=== PATIENT | female | born 1960 | race Caucasian/White ===

== ENCOUNTER 2017-10-12 12:35 | Emergency (ER) | payer MEDICARE, MEDICAID ==
--- NOTE | 2017-10-12 13:16 | Emergency Department Record ---
History of Present Illness - General Chief Complaint: Ankle/Foot Injury Stated Complaint: LT FOOT POSSIBLE NEEDLE BROKEN OFF IN FOOT Time Seen by Provider: 10/12/17 12:53 Source: Patient Mode of Arrival: Ambulatory Limitations: No limitations - History of Present Illness Initial Comments: pt thinks she has half a needle in her foot. she states that she found half of it in her shoe and it has contd to hurt. Complaint: Foot injury Onset/Timin -: Days(s) Injury: Foot: Left Type of Injury: Puncture wound Severity scale (1-10): 4 Improves With: Nothing Worsens With: Nothing Context: Other Associated Symptoms: Able to partially bear weight Treatments Prior to Arrival: Bandage - Related Data Previous Rx's Medication Instructions Recorded Cephalexin [Keflex] 500 mg PO TID #30 cap 10/12/17 Allergies Allergy/AdvReac Type Severity Reaction Status Date / Time No Known Drug Allergies Allergy Verified 10/12/17 12:39 Travel Screening - Travel/Exposure Within Last 30 Days Have you traveled within the last 30 days?: No - Travel/Exposure Within Last Year Have you traveled outside the [place] in the last year?: No - Additonal Travel Details Have you been exposed to anyone with a communicable illness?: No - Travel Symptoms Symptom Screening: None Review of Systems Reviewed: No additional complaints except as noted below Constitutional: Reports: As per HPI. Denies: Chills, Fever, Malaise, Night sweats, Weakness, Weight change Eyes: Reports: As per HPI. Denies: Eye discharge, Eye pain, Photophobia, Vision change ENT: Reports: As per HPI. Denies: Congestion, Dental pain, Ear pain, Epistaxis , Hearing loss, Throat pain Respiratory: Reports: As per HPI. Denies: Cough, Dyspnea, Hemoptysis, Stridor, Wheezes Cardiovascular: Reports: As per HPI. Denies: Arrhythmia, Chest pain, Dyspnea on exertion, Edema, Murmurs, Orthopnea, Palpitations, Paroxysmal nocturnal dyspnea, Rheumatic Fever, Syncope Endocrine: Reports: As per HPI. Denies: Fatigue, Heat or cold intolerance, Polydipsia, Polyuria Gastrointestinal: Reports: As per HPI. Denies: Abdominal pain, Constipation, Diarrhea, Hematemesis, Hematochezia, Melena, Nausea, Vomiting Genitourinary: Reports: As per HPI. Denies: Abnormal menses, Discharge, Dyspareunia, Dysuria, Frequency, Hematuria, Incontinence, Retention, Urgency Musculoskeletal: Reports: As per HPI. Denies: Arthralgia, Back pain, Gout, Joint swelling, Myalgia, Neck pain Skin: Reports: As per HPI. Denies: Bruising, Change in color, Change in hair/ nails, Lesions, Pruritus, Rash Neurological: Reports: As per HPI. Denies: Abnormal gait, Confusion, Headache, Numbness, Paresthesias, Seizure, Tingling, Tremors, Vertigo, Weakness Psychiatric: Reports: As per HPI. Denies: Anxiety, Auditory hallucinations, Depression, Homicidal thoughts, Suicidal thoughts, Visual hallucinations Hematological/Lymphatic: Reports: As per HPI. Denies: Anemia, Blood Clots, Easy bleeding, Easy bruising, Swollen glands Past Medical History - SOCIAL HISTORY Smoking Status: Never smoker Alcohol Use: None Drug Use: None - RESPIRATORY Hx Respiratory Disorders: Yes Hx Pulmonary Embolism: Yes (several in [facility] 07/2014) - CARDIOVASCULAR Hx Cardio Disorders: Yes Hx Vascular Disease: Yes (venous insuff sees wound clinic) - NEURO Hx Neuro Disorders: No - GI Hx GI Disorders: No - Hx Genitourinary Disorders: No - ENDOCRINE Hx Endocrine Disorders: No Comment:: mom denies this but put her on metformin for blood clots - MUSCULOSKELETAL Hx Musculoskeletal Disorders: No - PSYCH Hx Psych Problems: No Hx Behavior Problems: Yes (anger issues) Comment:: 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 Physical Exam - General General Appearance: Alert, Oriented x3, Cooperative, Mild distress - Head Head exam: Normal inspection - Eye Eye exam: Normal appearance, PERRL, EOMI Pupils: Normal accommodation - ENT ENT exam: Normal exam, Mucous membranes moist, Normal external ear exam, Normal orophraynx Ear exam: Normal external inspection. negative: External canal tenderness Nasal Exam: Normal inspection. negative: Discharge, Sinus tenderness Mouth exam: Normal external inspection, Tongue normal Teeth exam: Normal inspection. negative: Dental caries Throat exam: Normal inspection. negative: Tonsillar erythema, Tonsillar exudate - Neck Neck exam: Normal inspection, Full ROM. negative: Tenderness - Respiratory Respiratory exam: Normal lung sounds bilaterally. negative: Respiratory distress - Cardiovascular Cardiovascular Exam: Regular rate, Normal rhythm, Normal heart sounds - GI/Abdominal GI/Abdominal exam: Soft, Normal bowel sounds. negative: Tenderness - Rectal Rectal exam: Deferred - exam: Deferred - Extremities Extremities exam: Normal inspection, Full ROM, Normal capillary refill, Tenderness, Other (swelling and a blister over the medial arch) Image of Feet: 1 - tender swelling w erythema and a blister - Back Back exam: Reports: Normal inspection, Full ROM. Denies: Muscle spasm, Rash noted, Tenderness - Neurological Neurological exam: Alert, Normal gait, Oriented X3, Reflexes normal - Psychiatric Psychiatric exam: Normal affect, Normal mood - Skin Skin exam: Dry, Intact, Normal color, Warm Course Vital Signs 10/12/17 12:41 Temperature 97.8 F Pulse Rate 77 Respiratory 16 Rate Blood Pressure 122/76 Pulse Ox 96 Medical Decision Making - Lab Data Result diagrams: 10/12/17 13:16 10/12/17 13:16 Disposition Disposition: Discharge Clinical Impression: Cellulitis and abscess of foot Disposition: Home, Self-Care Condition: (1) Good Instructions: Cellulitis (ED) Additional Instructions: follow up with family doctor this week. return sooner if worse. keep foot elevated and clean. Prescriptions: Cephalexin [Keflex] 500 mg PO TID #30 cap Forms: Patient Portal Access Quality - Quality Measures Quality Measures: N/A - Blood Pressure Screening Does Patient Have Any of the Following: No Blood Pressure Classification: Pre-Hypertensive BP Reading Systolic Measurement: 122 Diastolic Measurement: 76 Screening for High Blood Pressure: < Pre-Hypertensive BP, F/U Documented > [ G8950] Pre-Hypertensive Follow-up Interventions: Follow-up with rescreen every year.
[2017-10-12 13:21] LABS: EOS % 6.1 % (0-6); GRAN % 49.3 % (47-80); HEMATOCRIT 38.1 % (35.0-47.0); HEMOGLOBIN 11.8 gm/dl (11.6-16.0); LYMPH % 36.5 % (16-45); MEAN CELL VOLUME 91.8 fl (81-97); MEAN CORPUSCULAR HEMOGLOBIN 28.4 pg (27-33); MEAN PLATELET VOLUME 9.3 fl (7.4-10.4); MONO % 7.1 % (0-9); PLATELET COUNT 237 K/uL (130-400); RED BLOOD COUNT 4.15 M/uL (3.80-5.40); RED CELL DISTRIBUTION WIDTH 14.8 % (11.5-14.5); WHITE BLOOD COUNT W/O DIFF 3.9 K/uL (4.2-12.2)
[2017-10-12 13:35] LABS: BLOOD UREA NITROGEN 29 mg/dL (6-20); CREATININE 0.7 mg/dL (0.5-0.9); EST GLOMERULAR FILTRATION RATE > 60 mL/min
[2017-10-12 13:38] LABS: GLUCOSE,RANDOM 96 mg/dL (74-109)
[2017-10-12] MEDS ORDERED: CEPHALEXIN 500 MG CAPSULE PO STA (14:48)
--- NOTE | 2017-10-13 09:31 | RADIOLOGY REPORT ---
EXAM: LEFT FOOT HISTORY: PATIENT STEPPED ON NEEDLE TWO TO FOUR DAYS AGO. TECHNIQUE: Three views of the left foot were obtained. Comparison: None. FINDINGS: No radiopaque foreign body. No fracture or acute osseous abnormality. There is a plantar calcaneal spur. There is loss of the normal plantar arch. Arthritic changes are present at the talocalcaneal joint and talonavicular joint. Arthritic changes are also noted at the calcaneal cuboid and naviculocuneiform joints. The metacarpals and phalangeals appear diffusely demineralized, but are otherwise unremarkable. IMPRESSION: 1. NO ACUTE FRACTURE OR RADIOPAQUE FOREIGN BODY. 2. DIFFUSE ARTHRITIC CHANGES ARE PRESENT IN THE TARSAL BONES ABOVE. THERE IS SOME RESULTANT FLATTENING OF THE LEFT FOOT AND LOSS OF THE NORMAL ARCH. JOB NUMBER: [id number] [facility] [place]
== END 2017-10-12 14:59 | disposition home or self-care (01) ==
LOC: ER 12:35
DX: S91.332A Puncture wound without foreign body, left foot, initial encounter (principal); L03.116 Cellulitis of left lower limb; W26.8XXA Contact with other sharp object(s), not elsewhere classified, initial encounter
CPT/HCPCS: 80048; 85025; 99283

== ENCOUNTER 2018-09-04 15:04 | Emergency (ER) | payer MEDICARE, MEDICAID ==
--- NOTE | 2018-09-04 15:29 | Emergency Department Record ---
History of Present Illness - General Chief Complaint: Back Pain/Injury Stated Complaint: BACK AND LEG PAIN Time Seen by Provider: 09/04/18 15:22 Source: Patient Mode of Arrival: Ambulatory Limitations: No limitations - History of Present Illness Initial Comments: 58 yo female presents with low back with some pain radiating down the leg. 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 The pain is in lumbar area. The pain radiates to the right upper thigh. No weakness, no numbness, changes in bowel or bladder function. No abdominal pain. No pain beyond the knee. She saw her PCP yesterday. No imaging was completed at that time. MD Complaint: Back pain, Back injury Onset/Timin -: Days(s) Place: Home Radiation: Right leg Severity: Moderate Severity scale (1-10): 9 Quality: Aching Consistency: Constant Improves With: None Worsens With: Walking Associated Symptoms: Difficulty walking - Related Data Home Medications Medication Instructions Recorded Confirmed Last Taken Apixaban [Eliquis] 5 mg PO BID 09/04/18 09/04/18 09/04/18 Metformin HCl 500 mg PO BID 09/04/18 09/04/18 09/04/18 Montelukast Sodium [Singulair] 10 mg PO DAILY 09/04/18 09/04/18 09/04/18 Naproxen 500 mg PO BID 09/04/18 09/04/18 09/04/18 Previous Rx's Medication Instructions Recorded Hydrocodone/APAP 5/325Mg [[place] 1 each PO Q6H #12 tab 09/04/18 5Mg/325Mg] Allergies Allergy/AdvReac Type Severity Reaction Status Date / Time No Known Drug Allergies Allergy Verified 09/04/18 15:21 Travel Screening - Travel/Exposure Within Last 30 Days Have you traveled within the last 30 days?: No - Travel/Exposure Within Last Year Have you traveled outside the [place] in the last year?: No - Additonal Travel Details Have you been exposed to anyone with a communicable illness?: No - Travel Symptoms Symptom Screening: None Review of Systems Constitutional: Denies: Chills, Fever, Malaise, Weakness Eyes: Denies: Eye discharge ENT: Denies: Congestion, Throat pain Respiratory: Denies: Cough Cardiovascular: Denies: Chest pain, Syncope Endocrine: Denies: Fatigue Gastrointestinal: Denies: Abdominal pain, Diarrhea, Nausea, Vomiting Genitourinary: Denies: Dysuria, Urgency Musculoskeletal: Reports: Back pain, Myalgia. Denies: Arthralgia Skin: Denies: Bruising, Change in color, Rash Neurological: Denies: Headache Psychiatric: Denies: Anxiety Hematological/Lymphatic: Reports: Blood Clots. Denies: Easy bleeding, Easy bruising Past Medical History - SOCIAL HISTORY Smoking Status: Never smoker Alcohol Use: None Drug Use: None - RESPIRATORY Hx Respiratory Disorders: Yes Hx Pulmonary Embolism: Yes (several in [facility] 07/2014) - CARDIOVASCULAR Hx Cardio Disorders: Yes Hx Vascular Disease: Yes (venous insuff sees wound clinic) - NEURO Hx Neuro Disorders: No - GI Hx GI Disorders: No - Hx Genitourinary Disorders: No - ENDOCRINE Hx Endocrine Disorders: No Comment:: mom denies this but put her on metformin for blood clots - MUSCULOSKELETAL Hx Musculoskeletal Disorders: No - PSYCH Hx Psych Problems: No Hx Behavior Problems: Yes (anger issues) Comment:: 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 Physical Exam - General General Appearance: Alert, Oriented x3, Cooperative, No acute distress Limitations: No limitations - Head Head exam: Atraumatic, Normal inspection - Eye Eye exam: Normal appearance. negative: Conjunctival injection, Scleral icterus - ENT ENT exam: Normal exam Ear exam: Normal external inspection Nasal Exam: Normal inspection Mouth exam: Normal external inspection - Neck Neck exam: Normal inspection, Full ROM - Respiratory Respiratory exam: Normal lung sounds bilaterally. negative: Respiratory distress - Cardiovascular Cardiovascular Exam: Regular rate, Normal rhythm, Normal heart sounds - GI/Abdominal GI/Abdominal exam: Soft. negative: Tenderness - Rectal Rectal exam: Deferred - exam: Deferred - Extremities Extremities exam: Normal inspection, Pedal edema (chronic). negative: Tenderness - Back Back exam: Reports: Full ROM, Muscle spasm, Paraspinal tenderness, Tenderness, Vertebral tenderness. Denies: CVA tenderness (R), CVA tenderness (L) Image of Body Front/Back: 1 - lower lumbar tenderness, normal inspection, no swelling or bruising, tender approx L5 S1. - Neurological Neurological exam: Alert, Normal gait, Oriented X3, Other (Full foot flexion and extension, negative SLT, no weakness). negative: Abnormal gait, Altered, Motor sensory deficit - Psychiatric Psychiatric exam: Normal affect, Normal mood. negative: Agitated, Anxious - Skin Skin exam: Dry, Intact, Normal color, Warm Course Vital Signs 09/04/18 15:07 Temperature 97.7 F Pulse Rate 86 Respiratory 16 Rate Blood Pressure 118/65 Pulse Ox 96 - Reevaluation(s) Reevaluation #1: 09/04/18 16:14 The XR was reviewed with the radiologist. The patient has likely an acute or subacute compression fracture at L3. Multilevel degenerative changes noted at several levels. The patient was informed of the results. She is to call her PCP on Friday to discuss follow up She will be provided additional analgesia if needed. She is neurologically intact and pain controlled during the ED visit 09/04/18 16:24 The patient was prescribed a controlled substance. The prescription does not exceed three days. MAPS was reviewed at the time of the prescripts The topics of abuse, addiction, over dose, dangers of multiple medications, disposal, and illegal distribution were discussed with the patient. The patient verbalized understanding of the risks of the medication being provided Disposition Disposition: Discharge Clinical Impression: Lumbar spine strain, Compression fracture Disposition: Home, Self-Care Condition: (1) Good Instructions: Vertebral Compression Fracture (ED), Low Back Strain (ED) Additional Instructions: Call your doctor for the next available follow up appointment first of the week Tell them you were in the ER and diagnosed with an L3 compression fracture and will need a recheck Review this ER visit and the tests performed with your family doctor in the office Return to the ER for a recheck if worse, any new concerns or questions Take the prescriptions provided as directed Prescriptions: Hydrocodone/APAP 5/325Mg [[place] 5Mg/325Mg] 1 each PO Q6H #12 tab Referrals: ART STANTON C.N.M[facility] N.P. [NURSE PRACTITIONER] - Forms: Patient Portal Access Time of Disposition: 16:16 Quality - Quality Measures Quality Measures: N/A - Blood Pressure Screening Does Patient Have Any of the Following: No Blood Pressure Classification: Normal BP Reading Systolic Measurement: 118 Diastolic Measurement: 65 Screening for High Blood Pressure: < Normal BP, F/U Not Required > [G8783]
--- NOTE | 2018-09-05 21:11 | RADIOLOGY REPORT ---
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 PAIN IS ON RIGHT RADIATING INTO RIGHT LOWER LEG. TECHNIQUE: AP, lateral, and both oblique views of the lumbar spine are obtained as well a spot lateral view of the lumbosacral junction. COMPARISON: Two-view chest radiographic examination dated 07/02/2018. FINDINGS: There is diffuse osteopenia. Five [id number] lumbar-type vertebrae are identified. Minor dextroconvex curvature centered at the L1 level. There is minor levocurvature centered at the lower lumbar levels. There is 10 mm of anterolisthesis of L4 on L5. The vertebral bodies are otherwise normal in alignment and height. There is mild relatively uniform compression deformity of L3 with cortical buckling noted anteriorly and possible superior endplate disruption superiorly. The central height of L3 measures 23 mm, while that of L2 is 33 mm. The vertebral bodies are otherwise normal in height. No other evidence of acute fracture. Multilevel degenerative disc/degenerative endplate changes are identified, most pronounced at the lower lumbar levels, where they are moderate in degree. Multilevel bilateral facet arthropathy is present, most pronounced at the lower lumbar levels, where they are at least moderate in degree. Spondylolysis of L4 is possible. IMPRESSION: 1. DIFFUSE OSTEOPENIA LIMITS EVALUATION. 2. RELATIVELY UNIFORM COMPRESSION DEFORMITY OF L3. THIS IS AGE-INDETERMINATE, THOUGH LIKELY ACUTE/SUBACUTE. 3. NO OTHER OSSEOUS EVIDENCE OF FRACTURE. 4. MULTILEVEL DEGENERATIVE CHANGES. ANTEROLISTHESIS OF L4 ON L5, LIKELY DUE TO DEGENERATIVE DISEASE AND POSSIBLE SPONDYLOLYSIS OF L4. JOB [facility]BER: [id number] [facility]
== END 2018-09-04 16:28 | disposition home or self-care (01) ==
LOC: ER 15:04
DX: S39.012A Strain of muscle, fascia and tendon of lower back, initial encounter (principal); M48.56XA Collapsed vertebra, not elsewhere classified, lumbar region, initial encounter for fracture; X50.9XXA Other and unspecified overexertion or strenuous movements or postures, initial encounter; Y92.007 Garden or yard of unspecified non-institutional (private) residence as the place of occurrence of the external cause
CPT/HCPCS: 72110; 99283

== ENCOUNTER 2019-03-08 12:28 | Day surgery (SDC) | payer MEDICARE, MEDICAID ==
[2019-03-08] MEDS ORDERED: PROPOFOL 10 MG/ML VIAL IV ONE (12:29)
[2019-03-08] MEDS ORDERED: LIDOCAINE 2% MDV (20MG/ML) 20ML VIAL IV ONE (12:29)
--- NOTE | 2019-03-11 08:20 | Operative Note ---
OPERATION: COLONOSCOPY. PREOPERATIVE DIAGNOSIS: Hemoccult-positive stool. POSTOPERATIVE DIAGNOSIS: Normal terminal ileum and colon. PROCEDURE: After informed consent was obtained from the patient, she was placed in the left lateral decubitus position in the endoscopy suite, sedated and monitored by the department of anesthesia. Digital rectal examination was unremarkable. A well-lubricated [id number] colonoscope was inserted into the rectum and advanced to the cecum. Preparation quality was excellent. The cecum, cecal bulb, distal portion of the terminal ileum, ascending colon, transverse colon, descending colon, sigmoid colon, and rectum were free of inflammatory changes, mass lesions, or polyps. J-turn views of the anorectum were unremarkable. The endoscope was straightened, the rectal ampulla deflated, and the endoscope was removed. RECOMMENDATIONS: The patient should resume her medications and diet. I would suggest an upper endoscopy be performed to assess her heme positivity particularly given the use of Naprosyn. She should undergo repeat colonoscopy in 10 years. As always, thank you for allowing me to participate in the healthcare of your patients. CARLOS
== END 2019-03-08 14:30 | disposition home or self-care (01) ==
LOC: HOP 12:28
PROVIDERS: ATTEND Internal Medicine Gastroenterology
DX: R19.5 Other fecal abnormalities (principal); Z86.711 Personal history of pulmonary embolism; Z79.01 Long term (current) use of anticoagulants; J44.9 Chronic obstructive pulmonary disease, unspecified